=== PATIENT | male | born 2000 ===

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

== ENCOUNTER → 2022-01-29 14:56 | Outpatient (BNVA) | payer OTHER, SELFPAY | PROVIDERS: PCP Pediatrics; Visit Provider Nurse Practitioner Family | DX: G43.909 Migraine, unspecified, not intractable, without status migrainosus (principal); M54.2 Cervicalgia; G47.9 Sleep disorder, unspecified | CPT/HCPCS: 99212 ==